=== PATIENT | female | born 1990 | race Caucasian/White ===

== ENCOUNTER → 2020-02-13 | Outpatient (CLI) | payer SELFPAY ==
[~2020-02-13] MED LIST: AMOXICILLIN 50500 MG PO; CLINDAMYCIN150 MG PO; DEPO-PROVER150 MG/M1 IM; NO HOME MEDICATIONS; NORCO 325 MG-51 TAB PO; PERCOCET 325 MG1 TA2 PO
== END ==
LOC: COL.RAD 02-07 09:45
DX: M53.3 Sacrococcygeal disorders, not elsewhere classified (principal); R60.0 Localized edema